=== PATIENT | male | born 1995 | race Caucasian/White ===

== ENCOUNTER 2023-10-15 14:19 | Emergency (ER) | payer SELFPAY ==
[2023-10-15] MEDS: Ketorolac 30 MG/ML SDV IM ONE (14:36)
[2023-10-15] MEDS: Acetaminophen/HYDROcodone 325-5 MG Tab PO ONE (15:28)
== END 2023-10-15 16:03 | disposition home or self-care (01) ==
LOC: MW.ED 14:19
DX: S62.636A Displaced fracture of distal phalanx of right little finger, initial encounter for closed fracture (principal); W23.1XXA Caught, crushed, jammed, or pinched between stationary objects, initial encounter; Z75.8 Other problems related to medical facilities and other health care
CPT/HCPCS: 73140; 96372; 99283; A9270; J1885

== ENCOUNTER 2024-05-12 17:13 | Emergency (ER) | payer SELFPAY | END 2024-05-12 20:15 | disposition home or self-care (01) | LOC: MW.ED 17:13 | DX: S67.21XA Crushing injury of right hand, initial encounter (principal); Z75.8 Other problems related to medical facilities and other health care; W23.0XXA Caught, crushed, jammed, or pinched between moving objects, initial encounter | CPT/HCPCS: 73130-26-RT; 73130-RT; 99283 ==